=== PATIENT | female | born 1950 | race Caucasian/White ===

== ENCOUNTER 2018-05-21 12:29 | Inpatient (IN) | payer MEDICARE ==
[~2018-05-21] VITALS: Ht 160 cm; Wt 104.5 kg
[2018-05-21 12:30] VITALS: BP 153/58
[2018-05-21] MEDS ORDERED: ALENDRONAT70 MG/75 M PO (12:48)
[2018-05-21] MEDS ORDERED: BAYER CHEWABLE81 MG PO (12:48)
[2018-05-21] MEDS ORDERED: FUROSEMIDE20 MG PO (12:49)
[2018-05-21] MEDS ORDERED: TIROSINT88 MCG PO (12:49)
[2018-05-21] MEDS ORDERED: KLOR-CON 1010 MEQ PO (12:50)
[2018-05-21] MEDS ORDERED: VITAMIN D31000 UNIT PO (12:50)
[2018-05-21 14:33] VITALS: BP 153/58; Ht 160 cm; Wt 104.5 kg
[2018-05-21 18:05] VITALS: BP 145/64
[2018-05-21 18:49] LABS: BASOPHILS 0.1 % (0-2); EOSINOPHILS 0.1 % (0-7); HEMATOCRIT 51.8 % (36.0-48.0); HEMOGLOBIN 17.4 g/dL (12-16); IMMATURE GRANULOCYTES 0.4 % (0-5); LYMPHOCYTES 8.4 % (15-50); MCH 34.3 pg (26.0-34.0); MCHC 33.6 g/dL (31.0-37.0); MEAN PLATELET VOLUME 10.6 fL (7.4-10.4); MONOCYTES 0.6 % (2-11); NEUTROPHILS 90.4 % (40-80); PLATELET COUNT 217 10x3/uL (130-400); RBC 5.08 10x6/uL (4.00-5.40); RDW 13.7 % (11.5-14.5); WBC 10.3 10x3/uL (4.8-10.8)
[2018-05-21 19:24] LABS: ALBUMIN 3.2 g/dL (3.4-5.0); ANION GAP 11.7 mmol/L (8-16); BILIRUBIN - TOTAL 0.41 mg/dL (0.2-1.3); CALCIUM 8.3 mg/dL (8.5-10.1); CARBON DIOXIDE 31.6 mmol/L (21.0-32.0); CREATININE - SERUM 1.1 mg/dL (0.6-1.3); POTASSIUM - SERUM 4.3 mmol/L (3.5-5.1); PROTEIN - SERUM 7.6 g/dL (6.4-8.2)
[2018-05-21 20:53] VITALS: BP 151/71
[2018-05-22 00:34] VITALS: BP 131/61
[2018-05-22 04:46] VITALS: BP 107/56
[2018-05-22 04:51] LABS: BASOPHILS 0.1 % (0-2); EOSINOPHILS 0 % (0-7); HEMATOCRIT 50.5 % (36.0-48.0); HEMOGLOBIN 16.5 g/dL (12-16); IMMATURE GRANULOCYTES 0.5 % (0-5); LYMPHOCYTES 10.5 % (15-50); MCH 33.5 pg (26.0-34.0); MCHC 32.7 g/dL (31.0-37.0); MCV 102.4 fL (80.0-100.0); MEAN PLATELET VOLUME 10.9 fL (7.4-10.4); MONOCYTES 2.1 % (2-11); NEUTROPHILS 86.8 % (40-80); PLATELET COUNT 240 10x3/uL (130-400); RBC 4.93 10x6/uL (4.00-5.40); RDW 13.7 % (11.5-14.5); WBC 9.9 10x3/uL (4.8-10.8)
[2018-05-22 05:09] LABS: ALBUMIN 3.1 g/dL (3.4-5.0); BILIRUBIN - TOTAL 0.4 mg/dL (0.2-1.3); CALCIUM 8.3 mg/dL (8.5-10.1); CARBON DIOXIDE 31.3 mmol/L (21.0-32.0); POTASSIUM - SERUM 4.3 mmol/L (3.5-5.1); PROTEIN - SERUM 7.4 g/dL (6.4-8.2)
[2018-05-22 09:07] VITALS: BP 118/68
[2018-05-22 13:49] VITALS: BP 130/55
[2018-05-22 16:45] VITALS: BP 140/55
[2018-05-22 20:00] VITALS: BP 135/68
[2018-05-23 00:30] VITALS: BP 128/72
[2018-05-23 05:30] LABS: BASOPHILS 0 % (0-2); EOSINOPHILS 0 % (0-7); HEMATOCRIT 48.4 % (36.0-48.0); HEMOGLOBIN 15.5 g/dL (12-16); IMMATURE GRANULOCYTES 0.4 % (0-5); LYMPHOCYTES 6.3 % (15-50); MCH 33.2 pg (26.0-34.0); MCV 103.6 fL (80.0-100.0); MEAN PLATELET VOLUME 10.9 fL (7.4-10.4); MONOCYTES 4.7 % (2-11); NEUTROPHILS 88.6 % (40-80); PLATELET COUNT 258 10x3/uL (130-400); RBC 4.67 10x6/uL (4.00-5.40); RDW 14.1 % (11.5-14.5)
[2018-05-23 05:37] LABS: WBC 16.9 10x3/uL (4.8-10.8)
[2018-05-23 05:45] VITALS: BP 131/62
[2018-05-23 06:22] LABS: ALBUMIN 3.1 g/dL (3.4-5.0); ANION GAP 12.8 mmol/L (8-16); BILIRUBIN - TOTAL 0.31 mg/dL (0.2-1.3); CARBON DIOXIDE 30.8 mmol/L (21.0-32.0); CREATININE - SERUM 1.1 mg/dL (0.6-1.3); POTASSIUM - SERUM 4.6 mmol/L (3.5-5.1); PROTEIN - SERUM 6.6 g/dL (6.4-8.2)
[2018-05-23 08:21] VITALS: BP 145/63
[2018-05-23 11:30] VITALS: BP 133/60
--- NOTE | 2018-05-23 15:22 | HP ---
PATIENT: GEOVANY SHERIDAN MEDICAL RECORD: [id number] ACCOUNT: [id number] LOCATION:D.MS Thomas2225 : 50 ADMISSION DATE: 05/21/18 PCP: No PCP HISTORY AND PHYSICAL EXAMINATION HISTORY: Ms. Sheridan is a 67-year-old white female who presents to the office this morning with shortness of breath and cough. Her initial pulse ox was in the 70s upon arrival. Symptoms have been going on for around little less than 3 weeks. She has cough and chest wall pain. Cough is productive with white thickish sputum. She has had fever, chills, and wheezing. Her chest x-ray reveals some haziness compatible with possible early pneumonia. She is going to be admitted this time for hypoxia and COPD exacerbation. PAST MEDICAL HISTORY: Significant for known COPD/asthma, restless legs, hypothyroidism, hypertension, and obesity. PAST SURGICAL HISTORY: Previous surgeries include cholecystectomy and tonsillectomy. ALLERGIES: KEFLEX, PENICILLIN, AND SULFA. HOME MEDICATIONS: Include levothyroxine 88 mcg a day, KCl 10 mEq daily, furosemide 20 mg a day, alendronate 70 mg once a week, Trelegy one puff daily, ProAir two puffs q. 4 p.r.n., vitamin D one a day, Benadryl, multivitamin, and baby aspirin a day. FAMILY HISTORY: Noncontributory. SOCIAL HISTORY: The patient smokes everyday. She smoked for over 50 years. She does not drink. She is . REVIEW OF SYSTEMS: See chief complaint. She is having fever, shortness of breath, productive cough, and wheezing. No nausea or vomiting. PHYSICAL EXAMINATION: GENERAL: Overweight 67-year-old white female, in mild distress. She is tachypneic at this time. HEART: Regular. LUNGS: Scattered rales and rhonchi. ABDOMEN: Soft. LOWER EXTREMITIES: Reveal some mild edema. IMPRESSION: 1. COPD exacerbation. 2. Hypoxia with pulse ox in the 70s on room air upon presentation. 3. Known COPD. 4. Tobacco abuse. PLAN: Admit. IV antibiotics and pulmonary toilet. See orders for rest of plan. TRANSINT:[id number] Voice Confirmation ID: [id number] DOCUMENT ID: [id number] HISTORY AND PHYSICAL [id number] EMILIANOGEOVANY MATTHEW DO at 1522 CC: [id number] DICTATION DATE: 05/21/18 182 FIBERGLASS FABRICATOR: 05/21/18 185 ADM IN [place] [id number] [place] [id number]
[2018-05-23 20:25] VITALS: BP 119/66
[2018-05-24 00:14] VITALS: BP 119/65
[2018-05-24 04:12] LABS: BASOPHILS 0.1 % (0-2); EOSINOPHILS 0 % (0-7); HEMATOCRIT 52.7 % (36.0-48.0); HEMOGLOBIN 16.6 g/dL (12-16); IMMATURE GRANULOCYTES 0.8 % (0-5); LYMPHOCYTES 7.5 % (15-50); MCH 33.5 pg (26.0-34.0); MCHC 31.5 g/dL (31.0-37.0); MEAN PLATELET VOLUME 10.9 fL (7.4-10.4); MONOCYTES 4.5 % (2-11); NEUTROPHILS 87.1 % (40-80); PLATELET COUNT 285 10x3/uL (130-400); RBC 4.95 10x6/uL (4.00-5.40); RDW 14.3 % (11.5-14.5); WBC 14.9 10x3/uL (4.8-10.8)
[2018-05-24 04:15] LABS: MCV 106.5 fL (80.0-100.0)
[2018-05-24 04:27] LABS: ALBUMIN 3.2 g/dL (3.4-5.0); ANION GAP 11.1 mmol/L (8-16); BILIRUBIN - TOTAL 0.47 mg/dL (0.2-1.3); CALCIUM 8.1 mg/dL (8.5-10.1); CARBON DIOXIDE 32.4 mmol/L (21.0-32.0); CREATININE - SERUM 1.2 mg/dL (0.6-1.3); POTASSIUM - SERUM 4.5 mmol/L (3.5-5.1); PROTEIN - SERUM 7.3 g/dL (6.4-8.2)
[2018-05-24 09:07] VITALS: BP 127/63
--- NOTE | 2018-05-24 10:52 | MORECARE ---
CASE MANAGEMENT DISCHARGE SUMMARY PATIENT: GEOVANY CUMMINGS UNIT: [id number] ADM DATE: 05/21/18 AGE: 67 : 50 SEX: F ROOM/BED: D.2225 AUTHOR: ALISSA DAVIS PHYSICIAN: REFERRING PHYSICIAN: ED KITCHEN MD DATE OF SERVICE: 05/24/18 Discharge Plan Patient Name: GEOVANY CUMMINGS Facility: [facility]:[place] : 1950 Planned Disposition: Home Anticipated Discharge Date: Discharge Date: Expected LOS: Initial Reviewer: [email or web address] Initial Review Date: 05/21/2018 Generated: 05/24/18 11:52 am Patient Name: GEOVANY CUMMINGS Page [id number] at 1052 All edits/amendments must be made on the electronic document DICTATION DATE: 05/24/18 1052 TRAINMAN: JENNIFER 05/24/18 1052 RPT#: [id number] DC DATE: STATUS: ADM IN [facility] [address] [place] [address] END OF REPORT
--- NOTE | 2018-05-24 10:59 | MORECARE ---
CASE MANAGEMENT DISCHARGE SUMMARY PATIENT: GEOVANY CUMMINGS UNIT: [id number] ADM DATE: 05/21/18 AGE: 67 : 50 SEX: F ROOM/BED: D.2225 AUTHOR: ALISSA DAVIS PHYSICIAN: REFERRING PHYSICIAN: ED KITCHEN MD DATE OF SERVICE: 05/24/18 Discharge Plan Patient Name: GEOVANY CUMMINGS [facility] [facility] 1950 Planned Disposition: Home Anticipated Discharge Date: Discharge Date: Expected LOS: Initial Reviewer: [email or web address] Initial Review Date: 05/21/2018 Generated: 05/24/18 11:59 am DCPIA - Discharge Planning Initial Assessment Updated by [id number]: Ewa Pennington on 05/24/18 10:53 am * Is the patient Alert and Oriented? Yes * How many steps to enter\exit or inside your home? 0/1 * PCP Dr. Tavares * Pharmacy [facility] in [place] * Preadmission Environment Home with Family * ADLs Independent * Equipment None * List name and contact numbers for known caregivers / representatives who currently or will assist patient after discharge: Wai Donald [facility] - [phone] * Verbal permission to speak to the caregivers and representatives has been obtained from the patient. Yes * Community resources currently utilized None * Additional services required to return to the preadmission environment? No * Can the patient safely return to the preadmission environment? Yes * Has this patient been hospitalized within the prior 30 days at any hospital? No Last DP export: 05/24/18 9:52 am Patient Name: GEOVANY CUMMINGS Page 53674 at 1059 All edits/amendments must be made on the electronic document DICTATION DATE: 05/24/18 105 FIREARMS SPECIALIST: JENNIFER 05/24/18 1059 RPT#: [id number] DC DATE: STATUS: ADM IN [facility] [address] [place] [address] END OF REPORT
[2018-05-24 13:53] VITALS: BP 135/70
[2018-05-24 16:00] VITALS: BP 164/50
[2018-05-24 17:03] LABS: CKMB 3.7 U/L (0.0-3.6); CREATINE KINASE 114 UL (21-215); TROPONIN-I 0.018 ng/mL (0.000-0.060)
[2018-05-24 20:00] VITALS: BP 94/55
[2018-05-24 22:46] LABS: CKMB 1.8 U/L (0.0-3.6); CREATINE KINASE 112 UL (21-215); TROPONIN-I < 0.017 ng/mL (0.000-0.060)
[2018-05-25] VITALS: BP 123/51; BP 96/58
[2018-05-25 03:00] VITALS: BP 117/65
[2018-05-25 06:20] LABS: BASOPHILS 0.1 % (0-2); EOSINOPHILS 0 % (0-7); HEMATOCRIT 47.9 % (36.0-48.0); HEMOGLOBIN 15.1 g/dL (12-16); LYMPHOCYTES 8.5 % (15-50); MCH 33.3 pg (26.0-34.0); MCHC 31.5 g/dL (31.0-37.0); MCV 105.5 fL (80.0-100.0); MEAN PLATELET VOLUME 10.9 fL (7.4-10.4); MONOCYTES 4.4 % (2-11); PLATELET COUNT 263 10x3/uL (130-400); RBC 4.54 10x6/uL (4.00-5.40); RDW 13.9 % (11.5-14.5)
[2018-05-25 06:21] LABS: WBC 10.5 10x3/uL (4.8-10.8)
[2018-05-25 07:10] LABS: ALBUMIN 2.9 g/dL (3.4-5.0); ALKALINE PHOSPHATASE 73 U/L (46-116); ALT (SGPT) 94 U/L (10-68); BILIRUBIN - TOTAL 0.41 mg/dL (0.2-1.3); CALC OSMOLALITY 292 mosm/kg (275-300); CALCIUM 7.9 mg/dL (8.5-10.1); CHLORIDE - SERUM 104 mmol/L (98-107); CKMB 1.7 U/L (0.0-3.6); CREATINE KINASE 101 UL (21-215); GLUCOSE 177 mg/dL (74-106); POTASSIUM - SERUM 4.7 mmol/L (3.5-5.1); PROTEIN - SERUM 6.4 g/dL (6.4-8.2); SODIUM 144 mmol/L (136-145); TROPONIN-I < 0.017 ng/mL (0.000-0.060); UREA NITROGEN 19 mg/dL (7-18); eGFR NON AFRICAN AMERICAN 58 mL/min (90-120)
[2018-05-25 08:37] VITALS: BP 118/48
[2018-05-25 12:30] VITALS: BP 130/52
[2018-05-25 16:50] VITALS: BP 136/78
[2018-05-25 20:00] VITALS: BP 120/45
[2018-05-26] VITALS: BP 120/56
[2018-05-26 03:00] VITALS: BP 180/56
[2018-05-26 05:39] LABS: BASOPHILS 0.1 % (0-2); EOSINOPHILS 0 % (0-7); HEMATOCRIT 48.2 % (36.0-48.0); HEMOGLOBIN 15.3 g/dL (12-16); IMMATURE GRANULOCYTES 1.2 % (0-5); LYMPHOCYTES 8.1 % (15-50); MCHC 31.7 g/dL (31.0-37.0); MCV 103.9 fL (80.0-100.0); MEAN PLATELET VOLUME 10.7 fL (7.4-10.4); MONOCYTES 5.1 % (2-11); NEUTROPHILS 85.5 % (40-80); PLATELET COUNT 250 10x3/uL (130-400); RBC 4.64 10x6/uL (4.00-5.40); RDW 13.8 % (11.5-14.5); WBC 10.9 10x3/uL (4.8-10.8)
[2018-05-26 06:05] LABS: ALBUMIN 2.8 g/dL (3.4-5.0); ANION GAP 10.8 mmol/L (8-16); BILIRUBIN - TOTAL 0.47 mg/dL (0.2-1.3); CALCIUM 8.4 mg/dL (8.5-10.1); CREATININE - SERUM 1.2 mg/dL (0.6-1.3); POTASSIUM - SERUM 4.8 mmol/L (3.5-5.1); PROTEIN - SERUM 6.2 g/dL (6.4-8.2)
[2018-05-26 08:24] VITALS: BP 124/79
[2018-05-26 12:30] VITALS: BP 137/75
[2018-05-26 16:30] VITALS: BP 157/73
[2018-05-26 20:00] VITALS: BP 121/56
[2018-05-27] VITALS: BP 150/79
[2018-05-27 03:00] VITALS: BP 146/80
[2018-05-27 06:54] LABS: ALBUMIN 2.8 g/dL (3.4-5.0); ANION GAP 8.1 mmol/L (8-16); BILIRUBIN - TOTAL 0.56 mg/dL (0.2-1.3); CALCIUM 8.7 mg/dL (8.5-10.1); POTASSIUM - SERUM 5.1 mmol/L (3.5-5.1)
[2018-05-27 07:41] LABS: BASOPHILS 0.1 % (0-2); EOSINOPHILS 0 % (0-7); HEMATOCRIT 45.5 % (36.0-48.0); HEMOGLOBIN 14.6 g/dL (12-16); IMMATURE GRANULOCYTES 1.1 % (0-5); LYMPHOCYTES 7.4 % (15-50); MCH 32.8 pg (26.0-34.0); MCHC 32.1 g/dL (31.0-37.0); MCV 102.2 fL (80.0-100.0); MONOCYTES 4.1 % (2-11); NEUTROPHILS 87.3 % (40-80); PLATELET COUNT 249 10x3/uL (130-400); RBC 4.45 10x6/uL (4.00-5.40); RDW 13.7 % (11.5-14.5); WBC 10.8 10x3/uL (4.8-10.8)
[2018-05-27 08:03] VITALS: BP 134/82
[2018-05-27 12:08] VITALS: BP 127/73
[2018-05-27 16:27] VITALS: BP 141/65
[2018-05-27 20:55] VITALS: BP 126/62
[2018-05-28 02:14] VITALS: BP 125/61
[2018-05-28 04:32] VITALS: BP 136/67
[2018-05-28 05:58] LABS: BASOPHILS 0.1 % (0-2); EOSINOPHILS 0 % (0-7); HEMATOCRIT 44.8 % (36.0-48.0); HEMOGLOBIN 14.4 g/dL (12-16); IMMATURE GRANULOCYTES 1.3 % (0-5); LYMPHOCYTES 8.7 % (15-50); MCH 32.7 pg (26.0-34.0); MCHC 32.1 g/dL (31.0-37.0); MCV 101.8 fL (80.0-100.0); MEAN PLATELET VOLUME 10.9 fL (7.4-10.4); MONOCYTES 5.5 % (2-11); NEUTROPHILS 84.4 % (40-80); PLATELET COUNT 233 10x3/uL (130-400); RDW 13.7 % (11.5-14.5); WBC 11.9 10x3/uL (4.8-10.8)
[2018-05-28 06:20] LABS: ALBUMIN 2.8 g/dL (3.4-5.0); ANION GAP 7.7 mmol/L (8-16); BILIRUBIN - TOTAL 0.57 mg/dL (0.2-1.3); CALCIUM 8.6 mg/dL (8.5-10.1); CARBON DIOXIDE 38.2 mmol/L (21.0-32.0); POTASSIUM - SERUM 4.9 mmol/L (3.5-5.1); PROTEIN - SERUM 5.9 g/dL (6.4-8.2)
[2018-05-28 09:38] VITALS: BP 128/66
--- NOTE | 2018-05-28 10:45 | CN ---
PATIENT NAME:GEOVANY CUMMINGS MEDICAL RECORD: [id number] : 50 LOCATION:D.MS Thomas2225 ADMIT DATE: 05/21/18 ACCOUNT: [id number] CONSULTING PHYSICIAN: RUPALI ÁLVAREZ MD REFERRING PHYSICIAN: ED KITCHEN MD DATE OF CONSULTATION: 05/24/2018 CARDIOLOGY CONSULTATION DATE OF SERVICE: 05/24/2018 DIAGNOSES: 1. Shortness of breath. 2. Chronic obstructive pulmonary disease. 3. Hypertension. HISTORY OF PRESENT ILLNESS: This patient presented as an outpatient with increasing shortness of breath, dyspnea on exertion. The patient has a history of known COPD. We are asked to comment cardiac etiology on this. He had an echocardiogram revealing ejection fraction of 60%. No valvular disease. There has been no chest pain. No chest discomfort. Troponin is normal and EKG is with no ischemic changes. PHYSICAL EXAMINATION: GENERAL APPEARANCE: Well-nourished, well-developed, appears stated age. Level of distress, comfortable. PSYCHIATRIC: Mental status, alert, normal affect. Orientation, oriented to time, place and person. EYES: Lids and conjunctiva, noninjected. No discharge, no pallor. ENT: Lips, teeth, gums, normal dentition. Oropharynx, no cyanosis, no pallor. NECK: Carotid arteries, bilateral normal upstroke, no bruits, no thrills. JUGULAR VEINS: No jugular venous pressure or distention. CERVICAL LYMPH NODES: Nontender, nonenlarged. THYROID: Not enlarged. Nontender. No nodules. LUNGS: Respiratory effort, unlabored. CHEST: Normal curvature. No thoracic deformity. No chest wall tenderness. Percussion, resonant. Auscultation, clear. No wheezes, no rales, no rhonchi. CARDIOVASCULAR: Precordial exam, nondisplaced. No heaves or pericardial thrills. Rate and rhythm, regular. Heart sounds, normal S1, normal S2. No S3, no gallop, no rub. Systolic murmur, not heard. Diastolic murmur, not heard. EXTREMITIES: No cyanosis, no edema. Peripheral pulses, full and equal in all extremities, except as noted. No bruits appreciated. ABDOMEN: Soft, nondistended. Normal aorta. No bruit. Nontender. No masses. Liver, nontender, no hepatomegaly. Spleen, nontender, no splenomegaly. MUSCULOSKELETAL: No joint tenderness. No joint swelling. No erythema. NEUROLOGICAL: Normal gait, normal strength, normal tone. SKIN: Warm and dry. OVERALL IMPRESSION: Shortness of breath, at this time this is chronic obstructive pulmonary disease and noncardiac. No other cardiac workup or treatment is necessary. TRANSINT:[id number] Voice Confirmation ID: [id number] DOCUMENT ID: [id number] CONSULT REPORT [id number] GEOVANY CUMMINGS JEFFREY MD at 1045 CC: [id number] DICTATION DATE: 05/24/18 1411 CHEMICAL PLANT MANAGER: 05/24/18 1449 ADM IN [facility] [address] [place] [id number]
--- NOTE | 2018-05-28 10:45 | EC ---
PATIENT:GEOVANY CUMMINGS DATE OF SERVICE: 05/21/18 SEX: F MEDICAL RECORD: [id number] DATE OF : 50 LOCATION:D.MS Thomas222 AGE OF PATIENT: 67 ADMISSION DATE: 05/21/18 REFERRING PHYSICIAN: INTERPRETING PHYSICIAN: RUPALI FELIX MD ECHOCARDIOGRAM REPORT ECHO CHARGES 4 ECHO COMPLETE Date: 05/24/18 CLINICAL DIAGNOSIS: PE ECHOCARDIOGRAPHIC MEASUREMENTS (adult normal given) AC root (d.<3.7cm) 3.2 cm LV Septum d (<1.2 cm> 1.2 cm Valve Excursion 1.4 cm LV Septum (systole) 1.3 cm Left Atria (s.<4.0cm> 3.4 cm LVPW d(<1.2cm) 1.1 cm RV (d.<2.3cm) 3.2 cm LVPW (sytole) 1.3 cm LV diastole(<5.6CM) 4.3 cm MV E-F(>70mm/sec) cm LV systole 2.7 cm LVOT Diameter 1.6 cm MV exc.(>10mm) cm Est.ejection fraction (50-75%) % DOPPLER: LVIT cm/sec A 54.0 cm/sec E 94.0 cm/sec LA cm/sec RVSP 22 mmHg LVOT 106 cm/sec AOP1/2T m/s Asc. Ao 153 cm/sec RVOT cm/sec RA cm/sec PA cm/sec AV Gradient Peak 9.31 mmHg AV Mean 4.71 mmHg AV Area 1.6 cm MV Gradient Peak 5.28 mmHg MV Mean 1.98 mmHg MV Area cm COMMENTS: Physical Medicine Teacher: Aleja RECINOS Receiver Bulk System: 1 Dr. Felix TAPE# PACS Pericardial Effusion N DATE OF SERVICE: 05/24/2018 FINDINGS: 1. Left ventricular chamber size is within normal limits. Left ventricular systolic function is normal. Overall ejection fraction estimated at 60%. 2. Left atrium, right atrium, and right ventricle chamber sizes are within normal limits. 3. Valvular structures have normal structure and motion. 4. Doppler interrogation reveals no significant valvular insufficiency or stenosis. ECHOCARDIOGRAM REPORT [id number] GEOVANY CUMMINGS 5. No evidence of pericardial effusion or left ventricular thrombus. TRANSINT:[id number] Voice Confirmation ID: [id number] DOCUMENT ID: [id number] RUPALI FELIX MD at 1045 CC: [id number] DICTATION DATE: 05/24/18 1407 TERRITORY ACCOUNT EXECUTIVE: 05/24/18 1443 ADM IN [place] [id number] [place] [id number]
[2018-05-28 12:04] VITALS: BP 122/49
[2018-05-28 17:24] VITALS: BP 142/57
[2018-05-28 21:09] VITALS: BP 134/71
[2018-05-29 04:48] VITALS: BP 116/65
[2018-05-29 05:26] LABS: BASOPHILS 0.1 % (0-2); EOSINOPHILS 0.2 % (0-7); HEMATOCRIT 43.7 % (36.0-48.0); IMMATURE GRANULOCYTES 1.2 % (0-5); LYMPHOCYTES 25.9 % (15-50); MCH 32.9 pg (26.0-34.0); MCV 102.8 fL (80.0-100.0); MEAN PLATELET VOLUME 10.3 fL (7.4-10.4); MONOCYTES 8.6 % (2-11); PLATELET COUNT 211 10x3/uL (130-400); RBC 4.25 10x6/uL (4.00-5.40); WBC 13.9 10x3/uL (4.8-10.8)
[2018-05-29 05:51] LABS: ALBUMIN 2.7 g/dL (3.4-5.0); ANION GAP 4.3 mmol/L (8-16); BILIRUBIN - TOTAL 0.56 mg/dL (0.2-1.3); CALCIUM 8.5 mg/dL (8.5-10.1); POTASSIUM - SERUM 4.5 mmol/L (3.5-5.1); PROTEIN - SERUM 5.6 g/dL (6.4-8.2)
[2018-05-29 06:10] LABS: CARBON DIOXIDE 40.2 mmol/L (21.0-32.0)
[2018-05-29 13:56] VITALS: BP 151/65
[2018-05-29 17:12] VITALS: BP 119/57
[2018-05-29 21:07] VITALS: BP 151/65
[2018-05-30 04:00] VITALS: BP 127/61
[2018-05-30 05:55] LABS: BASOPHILS 0.1 % (0-2); EOSINOPHILS 0.3 % (0-7); HEMATOCRIT 43.2 % (36.0-48.0); HEMOGLOBIN 13.8 g/dL (12-16); IMMATURE GRANULOCYTES 1.1 % (0-5); LYMPHOCYTES 20.2 % (15-50); MCH 32.9 pg (26.0-34.0); MCHC 31.9 g/dL (31.0-37.0); MCV 102.9 fL (80.0-100.0); MEAN PLATELET VOLUME 11.1 fL (7.4-10.4); NEUTROPHILS 70.3 % (40-80); PLATELET COUNT 215 10x3/uL (130-400); RDW 13.9 % (11.5-14.5); WBC 15.4 10x3/uL (4.8-10.8)
[2018-05-30 06:30] LABS: ALBUMIN 2.7 g/dL (3.4-5.0); ANION GAP 8.6 mmol/L (8-16); BILIRUBIN - TOTAL 0.61 mg/dL (0.2-1.3); CALCIUM 8.5 mg/dL (8.5-10.1); CARBON DIOXIDE 35.9 mmol/L (21.0-32.0); POTASSIUM - SERUM 4.5 mmol/L (3.5-5.1); PROTEIN - SERUM 5.6 g/dL (6.4-8.2)
--- NOTE | 2018-05-30 15:12 | MORECARE ---
CASE MANAGEMENT DISCHARGE SUMMARY PATIENT: GEOVANY CUMMINGS UNIT: [id number] ADM DATE: 05/21/18 AGE: 67 : 50 SEX: F ROOM/BED: D.2223 AUTHOR: RYANDOC PHYSICIAN: REFERRING PHYSICIAN: ED KITCHEN MD DATE OF SERVICE: 05/30/18 Discharge Plan Patient Name: GEOVANY CUMMINGS Facility: [facility]:[place] : 1950 Planned Disposition: Home Anticipated Discharge Date: Discharge Date: Expected LOS: Initial Reviewer: [email or web address] Initial Review Date: 05/21/2018 Generated: 05/30/18 4:12 pm Comments DCP- Discharge Planning Updated by [id number]: Ewa Pennington on 05/24/18 9:[address] Patient Name: GEOVANY CUMMINGS Admission Status: Elective Accout number: [id number] Admission Date: 05-21-2018 : 1950 Admission Diagnosis: Attending: ED KITCHEN Current LOS: 3 Anticipated DC Date: Planned Disposition: Home Primary Insurance: [employer] CHOICE PPO MCR ADVANT Discharge Planning Comments: CM met with patient to discuss discharge planning/needs. She is alone in the room. States she is independent with all ADL's and IADL's. States she lives with her in a safe environment. She does not have any DME or outside community resources assisting in the home. I discussed availability of inpatient rehab, SNF, DME and home health. States her plan is to return home with her . Declines home health, states "my home is a very private place." I informed her of the possibility of needing oxygen or nebulizer at discharge. She states "I don't want oxygen, I've had it before and I don't want it." States she has 5 cats and they don't like the machine. Will need to have a walk test prior to discharge if needed. CM will continue to follow and assist with discharge planning/needs. Multiple Launch Rocket System Crewmember: Ewa Pennington DCPIA - Discharge Planning Initial Assessment Updated by [email or web address]: Ewa Pennington on 05/24/18 10:53 am * Is the patient Alert and Oriented? Yes * How many steps to enter\\exit or inside your home? 0/1 * PCP Dr. Tavares * Pharmacy [facility] in [place] * Preadmission Environment Home with Family * ADLs Independent * Equipment None * List name and contact numbers for known caregivers / representatives who currently or will assist patient after discharge: Wai Donald - [facility] - [phone] * Verbal permission to speak to the caregivers and representatives has been obtained from the patient. Yes * Community resources currently utilized None * Additional services required to return to the preadmission environment? No * Can the patient safely return to the preadmission environment? Yes * Has this patient been hospitalized within the prior 30 days at any hospital? No External Providers External Provider: BRENDANNola Next Contact Date: Service Request Date: Service Type: Resolution: Reviewer: Comments: Last DP export: 05/24/18 9:59 am Patient Name: GEOVANY CUMMINGS Page [id number] at 1512 All edits/amendments must be made on the electronic document DICTATION DATE: 05/30/181511 OPERATING ROOM ASSISTANT: JENNIFER 05/30/181511 RPT#: [id number] DC DATE: STATUS: ADM IN [facility] [address] [place] [address] END OF REPORT
--- NOTE | 2018-05-30 15:20 | MORECARE ---
CASE MANAGEMENT DISCHARGE SUMMARY PATIENT: GEOVANY CUMMINGS UNIT: [id number] ADM DATE: 05/21/18 AGE: 67 : 50 SEX: F ROOM/BED: D.2223 AUTHOR: RYAN,DOC PHYSICIAN: REFERRING PHYSICIAN: ED KITCHEN MD DATE OF SERVICE: 05/30/18 Discharge Plan Patient Name: GEOVANY CUMMINGS Facility: [facility]:[place] : 1950 Planned Disposition: Home Anticipated Discharge Date: Discharge Date: Expected LOS: Initial Reviewer: [email or web address] Initial Review Date: 05/21/2018 Generated: 05/30/18 4:20 pm Comments DCP- Discharge Planning Updated by [email or web address]: Ewa Pennington on 05/30/18 2:[address] Met with patient concerning discharge needs, she will consent to oxygen and nebulizer. MICHELLE for [facility] signed, She states she still does not want home health services. I called and spoke to Kelly at [facility] and order and clinical faxed. CM will continue to follow and assist with discharge planning/needs. DCP- Discharge Planning Updated by [email or web address]: Ewa Pennington on 05/24/18 9:[address] Patient Name: GEOVANY CUMMINGS Admission Status: Elective Accout number: [id number] Admission Date: 05-21-2018 : 1950 Admission Diagnosis: Attending: ED KITCHEN Current LOS: 3 Anticipated DC Date: Planned Disposition: Home Primary Insurance: [employer] CHOICE PPO [facility] Discharge Planning Comments: CM met with patient to discuss discharge planning/needs. She is alone in the room. States she is independent with all ADL's and IADL's. States she lives with her in a safe environment. She does not have any DME or outside community resources assisting in the home. I discussed availability of inpatient rehab, SNF, DME and home health. States her plan is to return home with her . Declines home health, states "my home is a very private place." I informed her of the possibility of needing oxygen or nebulizer at discharge. She states "I don't want oxygen, I've had it before and I don't want it." States she has 5 cats and they don't like the machine. Will need to have a walk test prior to discharge if needed. CM will continue to follow and assist with discharge planning/needs. Machine Deburrer: Ewa Aditi DCPIA - Discharge Planning Initial Assessment Updated by [email or web address]: Ewa Aditi on 05/24/18 10:53 am * Is the patient Alert and Oriented? Yes * How many steps to enter\\exit or inside your home? 0/1 * PCP Dr. Tavares * Pharmacy [facility] in [place] * Preadmission Environment Home with Family * ADLs Independent * Equipment None * List name and contact numbers for known caregivers / representatives who currently or will assist patient after discharge: Wai Donald - [facility] - [phone] * Verbal permission to speak to the caregivers and representatives has been obtained from the patient. Yes * Community resources currently utilized None * Additional services required to return to the preadmission environment? No * Can the patient safely return to the preadmission environment? Yes * Has this patient been hospitalized within the prior 30 days at any hospital? No Last DP export: 05/30/18 2:12 p Patient Name: GEOVANY CUMMINGS Page [id number] at 1520 All edits/amendments must be made on the electronic document DICTATION DATE: 05/30/181518 DEVELOPMENTAL MATHEMATICS PROFESSOR: JENNIFER 05/30/181518 RPT#: [id number] DC DATE: STATUS: ADM IN [facility] [address] [place] [address] END OF REPORT
[2018-05-30 16:30] VITALS: BP 118/61
[2018-05-30 20:00] VITALS: BP 127/62
[2018-05-31] VITALS: BP 140/52
[2018-05-31 06:10] LABS: BASOPHILS 0.1 % (0-2); EOSINOPHILS 0.3 % (0-7); HEMATOCRIT 41.4 % (36.0-48.0); HEMOGLOBIN 13.2 g/dL (12-16); IMMATURE GRANULOCYTES 1.3 % (0-5); LYMPHOCYTES 25.2 % (15-50); MCH 32.7 pg (26.0-34.0); MCHC 31.9 g/dL (31.0-37.0); MCV 102.5 fL (80.0-100.0); MEAN PLATELET VOLUME 11.1 fL (7.4-10.4); MONOCYTES 9.4 % (2-11); NEUTROPHILS 63.7 % (40-80); PLATELET COUNT 210 10x3/uL (130-400); RBC 4.04 10x6/uL (4.00-5.40); RDW 13.9 % (11.5-14.5); WBC 15.6 10x3/uL (4.8-10.8)
[2018-05-31 06:28] LABS: ALBUMIN 2.7 g/dL (3.4-5.0); ANION GAP 7.3 mmol/L (8-16); BILIRUBIN - TOTAL 0.65 mg/dL (0.2-1.3); CALCIUM 8.3 mg/dL (8.5-10.1); CARBON DIOXIDE 36.9 mmol/L (21.0-32.0); POTASSIUM - SERUM 4.2 mmol/L (3.5-5.1); PROTEIN - SERUM 5.5 g/dL (6.4-8.2)
[2018-05-31 10:04] VITALS: BP 135/81
--- NOTE | 2018-05-31 13:14 | MORECARE ---
CASE MANAGEMENT DISCHARGE SUMMARY PATIENT: GEOVANY CUMMINGS UNIT: [id number] ADM DATE: 05/21/18 AGE: 67 : 50 SEX: F ROOM/BED: D.2223 AUTHOR: RYAN,DOC PHYSICIAN: REFERRING PHYSICIAN: ED KITCHEN MD DATE OF SERVICE: 05/31/18 Discharge Plan Patient Name: GEOVANY CUMMINGS Facility: [facility]:[place] : 1950 Planned Disposition: Home Anticipated Discharge Date: Discharge Date: Expected LOS: Initial Reviewer: [email or web address] Initial Review Date: 05/21/2018 Generated: 05/31/18 2:14 pm Comments DCP- Discharge Planning Updated by [email or web address]: Ewa Pennington on 05/31/18 12:[address] Signed oxygen order and nebulizer order faxed to [facility] at [phone]. If she does not discharge today, will need to repeat a walk test to qualify for oxygen and send to [facility]. CM will continue to follow and assist with discharge planning/needs. [facility] in [place] - Phone [phone] F [phone] DCP- Discharge Planning Updated by [email or web address]: Ewa Pennington on 05/30/18 2:[address] Met with patient concerning discharge needs, she will consent to oxygen and nebulizer. MICHELLE for [facility] signed, She states she still does not want home health services. I called and spoke to Kelly at [facility] and order and clinical faxed. CM will continue to follow and assist with discharge planning/needs. DCP- Discharge Planning Updated by [email or web address]: Ewa Pennington on 05/24/18 9:[address] Patient Name: GEOVANY CUMMINGS Admission Status: Elective Accout number: [id number] Admission Date: 05-21-2018 : 1950 Admission Diagnosis: Attending: ED KITCHEN Current LOS: 3 Anticipated DC Date: Planned Disposition: Home Primary Insurance: [employer] CHOICE PPO MCR ADVANT Discharge Planning Comments: CM met with patient to discuss discharge planning/needs. She is alone in the room. States she is independent with all ADL's and IADL's. States she lives with her in a safe environment. She does not have any DME or outside community resources assisting in the home. I discussed availability of inpatient rehab, SNF, DME and home health. States her plan is to return home with her . Declines home health, states "my home is a very private place." I informed her of the possibility of needing oxygen or nebulizer at discharge. She states "I don't want oxygen, I've had it before and I don't want it." States she has 5 cats and they don't like the machine. Will need to have a walk test prior to discharge if needed. CM will continue to follow and assist with discharge planning/needs. Appliance Counselor: Ewa Pennington DCPIA - Discharge Planning Initial Assessment Updated by [email or web address]: Ewa Pennington on 05/24/18 10:53 am * Is the patient Alert and Oriented? Yes * How many steps to enter\\exit or inside your home? 0/1 * PCP Dr. Tavares * Pharmacy [facility] in [place] * Preadmission Environment Home with Family * ADLs Independent * Equipment None * List name and contact numbers for known caregivers / representatives who currently or will assist patient after discharge: Wai Donald - - [phone] * Verbal permission to speak to the caregivers and representatives has been obtained from the patient. Yes * Community resources currently utilized None * Additional services required to return to the preadmission environment? No * Can the patient safely return to the preadmission environment? Yes * Has this patient been hospitalized within the prior 30 days at any hospital? No Last DP export: 05/30/18 2:20 p Patient Name: GEOVANY CUMMINGS Page [id number] at 1314 All edits/amendments must be made on the electronic document DICTATION DATE: 05/31/18 1314 PEOPLESOFT ANALYST: JENNIFER 05/31/18 1314 RPT#: [id number] CO DATE: STATUS: ADM IN [facility] [address] [place] [address] END OF REPORT
[2018-05-31 14:49] VITALS: BP 148/66
[2018-05-31 17:36] VITALS: BP 127/66
[2018-05-31 20:00] VITALS: BP 123/71
[2018-06-01 00:27] LABS: APPEARANCE CLEAR (CLEAR); BILIRUBIN NEGATIVE (NEGATIVE); COLOR YELLOW (YELLOW); GLUCOSE NEGATIVE (NEGATIVE); KETONE NEGATIVE (NEGATIVE); NITRITE NEGATIVE (NEGATIVE); PROTEIN NEGATIVE (NEGATIVE); UROBILINOGEN NORMAL (NORMAL)
[2018-06-01 04:00] VITALS: BP 132/65
[2018-06-01 07:33] LABS: HEMATOCRIT 41.4 % (36.0-48.0); HEMOGLOBIN 13.3 g/dL (12-16); MCH 32.9 pg (26.0-34.0); MCHC 32.1 g/dL (31.0-37.0); MCV 102.5 fL (80.0-100.0); MEAN PLATELET VOLUME 11.6 fL (7.4-10.4); PLATELET COUNT 215 10x3/uL (130-400); RBC 4.04 10x6/uL (4.00-5.40); RDW 13.8 % (11.5-14.5)
[2018-06-01 07:39] LABS: CALC OSMOLALITY 298 mosm/kg (275-300); CALCIUM 8.3 mg/dL (8.5-10.1); CARBON DIOXIDE 31.6 mmol/L (21.0-32.0); CHLORIDE - SERUM 103 mmol/L (98-107); MAGNESIUM - SERUM 2.5 mg/dL (1.8-2.4); PHOSPHOROUS 3.3 mg/dL (2.5-4.9); POTASSIUM - SERUM 4.3 mmol/L (3.5-5.1); SODIUM 142 mmol/L (136-145); TROPONIN-I < 0.017 ng/mL (0.000-0.060); UREA NITROGEN 28 mg/dL (7-18); eGFR NON AFRICAN AMERICAN 58 mL/min (90-120)
[2018-06-01 07:45] LABS: GLUCOSE 286 mg/dL (74-106)
[2018-06-01 08:17] LABS: LYMPHOCYTES 7 % (15-50); NEUTROPHILS 93 % (40-80); PLATELET ESTIMATE NORMAL
[2018-06-01 10:58] VITALS: BP 107/74
[2018-06-01 14:18] VITALS: BP 120/60
[2018-06-01 17:57] VITALS: BP 118/74
[2018-06-01 20:00] VITALS: BP 153/68
[2018-06-02] VITALS: BP 126/63
[2018-06-02 04:00] VITALS: BP 105/44
[2018-06-02 05:21] LABS: BASOPHILS 0.1 % (0-2); EOSINOPHILS 0 % (0-7); HEMATOCRIT 39.7 % (36.0-48.0); IMMATURE GRANULOCYTES 1.3 % (0-5); LYMPHOCYTES 5.3 % (15-50); MCH 33.2 pg (26.0-34.0); MCHC 32.7 g/dL (31.0-37.0); MCV 101.3 fL (80.0-100.0); MEAN PLATELET VOLUME 11.3 fL (7.4-10.4); MONOCYTES 3.5 % (2-11); NEUTROPHILS 89.8 % (40-80); PLATELET COUNT 226 10x3/uL (130-400); RBC 3.92 10x6/uL (4.00-5.40); RDW 13.5 % (11.5-14.5)
[2018-06-02 05:30] LABS: ANION GAP 10.7 mmol/L (8-16); CALCIUM 8.2 mg/dL (8.5-10.1); CARBON DIOXIDE 31.8 mmol/L (21.0-32.0); POTASSIUM - SERUM 4.5 mmol/L (3.5-5.1)
[2018-06-02 09:27] VITALS: BP 144/57
[2018-06-02 13:20] VITALS: BP 131/73
[2018-06-02 17:02] VITALS: BP 127/55
[2018-06-02 21:20] VITALS: BP 156/76
[2018-06-03 02:06] VITALS: BP 147/61
[2018-06-03 06:00] VITALS: BP 131/52
[2018-06-03 06:55] LABS: HEMATOCRIT 39.9 % (36.0-48.0); HEMOGLOBIN 12.9 g/dL (12-16); MCH 32.8 pg (26.0-34.0); MCHC 32.3 g/dL (31.0-37.0); MCV 101.5 fL (80.0-100.0); MEAN PLATELET VOLUME 11.4 fL (7.4-10.4); PLATELET COUNT 240 10x3/uL (130-400); RBC 3.93 10x6/uL (4.00-5.40); RDW 13.6 % (11.5-14.5); WBC 21.9 10x3/uL (4.8-10.8)
[2018-06-03 06:57] LABS: ANION GAP 8.9 mmol/L (8-16); CALCIUM 8.3 mg/dL (8.5-10.1); CARBON DIOXIDE 32.7 mmol/L (21.0-32.0); CREATININE - SERUM 1.1 mg/dL (0.6-1.3); POTASSIUM - SERUM 4.6 mmol/L (3.5-5.1)
[2018-06-03 08:07] VITALS: BP 130/66
[2018-06-03 10:11] LABS: EOSINOPHILS 1 % (0-7); LYMPHOCYTES 9 % (15-50); MONOCYTES 6 % (2-11); NEUTROPHILS 84 % (40-80); PLATELET ESTIMATE NORMAL
--- NOTE | 2018-06-03 11:46 | EC ---
PATIENT:GEOVANY CUMMINGS DATE OF SERVICE: 05/21/18 SEX: F MEDICAL RECORD: [id number] DATE OF : [birth year] LOCATION:D.MS Thomas222 AGE OF PATIENT: 67 ADMISSION DATE: 05/21/18 REFERRING PHYSICIAN: INTERPRETING PHYSICIAN: RUPALI FELIX MD ECHOCARDIOGRAM REPORT ECHO CHARGES 5 ECHO LIMITED Date: 05/30/18 CLINICAL DIAGNOSIS: BUBBLE STUDEY TO ASSESS FOR SHUNT...HYPOXEMIA ECHOCARDIOGRAPHIC MEASUREMENTS (adult normal given) AC root (d.<3.7cm) 3.2 cm LV Septum d (<1.2 cm> 1.2 cm Valve Excursion 1.4 cm LV Septum (systole) 1.3 cm Left Atria (s.<4.0cm> 3.4 cm LVPW d(<1.2cm) 1.1 cm RV (d.<2.3cm) 3.2 cm LVPW (sytole) 1.3 cm LV diastole(<5.6CM) 4.3 cm MV E-F(>70mm/sec) cm LV systole 2.7 cm LVOT Diameter 1.6 cm MV exc.(>10mm) cm Est.ejection fraction (50-75%) % DOPPLER: LVIT cm/sec A 54.0 cm/sec E 94.0 cm/sec LA cm/sec RVSP 22 mmHg LVOT 106 cm/sec AOP1/2T m/s Asc. Ao 153 cm/sec RVOT cm/sec RA cm/sec PA cm/sec AV Gradient Peak 9.31 mmHg AV Mean 4.71 mmHg AV Area 1.6 cm MV Gradient Peak 5.28 mmHg MV Mean 1.98 mmHg MV Area cm COMMENTS: Public Bath Attendant: Aleja RECINOS Medical Record Administrator: 1 Dr. Felix TAPE# PACS Pericardial Effusion N DATE OF SERVICE: 05/30/2018 FINDINGS: 1. Left ventricular chamber size is within normal limits. Left ventricular systolic function is normal. Overall ejection fraction estimated at 55% to 60%. 2. Left atrium, right atrium, and right ventricle chamber sizes are within normal limits. 3. Valvular structures have normal structure and motion. 4. Doppler interrogation reveals no significant valvular insufficiency or stenosis. ECHOCARDIOGRAM REPORT [id number] GEOVANY CUMMINGS 5. Bubble study was performed. There is no sojz-ce-ipdxk or right to left shunt. 6. No evidence of pericardial effusion or left ventricular thrombus. 7. No cardiac source of neurologic emboli. TRANSINT:[id number] Voice Confirmation ID: [id number] DOCUMENT ID: [id number] RUPALI FELIX MD at 1146 CC: [id number] DICTATION DATE: 05/31/18 1126 MANUFACTURING APPLICATIONS ENGINEER: 05/31/18 1144 ADM IN [place] [id number] [place] [id number]
[2018-06-03 12:11] VITALS: BP 124/49
[2018-06-03 17:09] VITALS: BP 150/63
[2018-06-03 20:40] VITALS: BP 127/52
[2018-06-04 00:12] VITALS: BP 125/47
[2018-06-04 04:01] VITALS: BP 103/68
[2018-06-04 05:02] LABS: BASOPHILS 0.1 % (0-2); EOSINOPHILS 0 % (0-7); HEMATOCRIT 39.3 % (36.0-48.0); HEMOGLOBIN 12.7 g/dL (12-16); IMMATURE GRANULOCYTES 1.6 % (0-5); MCH 32.7 pg (26.0-34.0); MCHC 32.3 g/dL (31.0-37.0); MCV 101.3 fL (80.0-100.0); MEAN PLATELET VOLUME 11.3 fL (7.4-10.4); MONOCYTES 3.4 % (2-11); NEUTROPHILS 89.9 % (40-80); PLATELET COUNT 252 10x3/uL (130-400); RBC 3.88 10x6/uL (4.00-5.40); RDW 13.6 % (11.5-14.5); WBC 17.3 10x3/uL (4.8-10.8)
[2018-06-04 05:14] LABS: ANION GAP 8.6 mmol/L (8-16); CALCIUM 7.9 mg/dL (8.5-10.1); CARBON DIOXIDE 31.9 mmol/L (21.0-32.0); CREATININE - SERUM 1.2 mg/dL (0.6-1.3); POTASSIUM - SERUM 4.5 mmol/L (3.5-5.1)
[2018-06-04 08:39] VITALS: BP 133/90
[2018-06-04 12:13] VITALS: BP 135/51
--- NOTE | 2018-06-04 14:13 | MORECARE ---
CASE MANAGEMENT DISCHARGE SUMMARY PATIENT: GEOVANY CUMMINGS UNIT: [id number] ADM DATE: 05/21/18 AGE: 67 : 50 SEX: F ROOM/BED: D.2223 AUTHOR: RYAN,DOC PHYSICIAN: REFERRING PHYSICIAN: ED KITCHEN MD DATE OF SERVICE: 06/04/18 Discharge Plan Patient Name: GEOVANY CUMMINGS Facility: [facility]:[place] : 1950 Planned Disposition: Home Anticipated Discharge Date: Discharge Date: Expected LOS: Initial Reviewer: [id number] Initial Review Date: 05/21/2018 Generated: 06/04/18 3:13 pm Comments DCP- Discharge Planning Updated by [id number]: Ewa Aditi on 06/04/18 1:[address] CM continues to follow, I will set up another walk test prior to discharge for home oxygen. [facility] has the O and is ready to set up oxygen and portable prior to discharge. CM will continue to follow and assist with discharge planning/needs. DCP- Discharge Planning Updated by [email or web address]: Ewa Aditi on 05/31/18 12:[address] Signed oxygen order and nebulizer order faxed to [facility] at [phone]. If she does not discharge today, will need to repeat a walk test to qualify for oxygen and send to [facility]. CM will continue to follow and assist with discharge planning/needs. [facility] in [place] - Phone [phone] F [phone] DCP- Discharge Planning Updated by [email or web address]: Ewa Aditi on 05/30/18 2:[address] Met with patient concerning discharge needs, she will consent to oxygen and nebulizer. MICHELLE for [facility] signed, She states she still does not want home health services. I called and spoke to Kelly at [facility] and order and clinical faxed. CM will continue to follow and assist with discharge planning/needs. DCP- Discharge Planning Updated by [id number]: Ewa Aditi on 05/24/18 9:[address] Patient Name: GEOVANY CUMMINGS Admission Status: Elective Accout number: [id number] Admission Date: 05-21-2018 : 1950 Admission Diagnosis: Attending: ED KITCHEN Current LOS: 3 Anticipated DC Date: Planned Disposition: Home Primary Insurance: [employer] CHOICE PPO [facility] Discharge Planning Comments: CM met with patient to discuss discharge planning/needs. She is alone in the room. States she is independent with all ADL's and IADL's. States she lives with her in a safe environment. She does not have any DME or outside community resources assisting in the home. I discussed availability of inpatient rehab, SNF, DME and home health. States her plan is to return home with her . Declines home health, states "my home is a very private place." I informed her of the possibility of needing oxygen or nebulizer at discharge. She states "I don't want oxygen, I've had it before and I don't want it." States she has 5 cats and they don't like the machine. Will need to have a walk test prior to discharge if needed. CM will continue to follow and assist with discharge planning/needs. [employer]her [employer] Mica: Ewa Pennington DCPIA - Discharge Planning Initial Assessment Updated by [id number]: Ewa Pennington on 05/24/18 10:53 am * Is the patient Alert and Oriented? Yes * How many steps to enter\\exit or inside your home? 0/1 * PCP Dr. Tavares * Pharmacy [facility] in [place] * Preadmission Environment Home with Family * ADLs Independent * Equipment None * List name and contact numbers for known caregivers / representatives who currently or will assist patient after discharge: Wai Donald - - [phone] * Verbal permission to speak to the caregivers and representatives has been obtained from the patient. Yes * Community resources currently utilized None * Additional services required to return to the preadmission environment? No * Can the patient safely return to the preadmission environment? Yes * Has this patient been hospitalized within the prior 30 days at any hospital? No Last DP export: 05/31/18 12:14 p Patient Name: GEOVANY CUMMINGS Page [id number] at 1413 All edits/amendments must be made on the electronic document DICTATION DATE: 06/04/181412 ASBESTOS REMOVAL SUPERVISOR: JENNIFER 06/04/181412 RPT#: [id number] DC DATE: STATUS: ADM IN [facility] [address] [place] [address] END OF REPORT
[2018-06-04 15:55] VITALS: BP 130/48
[2018-06-04 20:00] VITALS: BP 150/69
[2018-06-05 04:00] VITALS: BP 140/58
[2018-06-05 06:06] LABS: BASOPHILS 0.1 % (0-2); EOSINOPHILS 0 % (0-7); HEMATOCRIT 37.9 % (36.0-48.0); HEMOGLOBIN 12.4 g/dL (12-16); IMMATURE GRANULOCYTES 1.8 % (0-5); LYMPHOCYTES 4.9 % (15-50); MCH 32.8 pg (26.0-34.0); MCHC 32.7 g/dL (31.0-37.0); MCV 100.3 fL (80.0-100.0); MEAN PLATELET VOLUME 11.1 fL (7.4-10.4); MONOCYTES 3.8 % (2-11); NEUTROPHILS 89.4 % (40-80); PLATELET COUNT 243 10x3/uL (130-400); RBC 3.78 10x6/uL (4.00-5.40); RDW 13.5 % (11.5-14.5); WBC 15.4 10x3/uL (4.8-10.8)
[2018-06-05 06:28] LABS: ANION GAP 12.3 mmol/L (8-16); CALCIUM 7.8 mg/dL (8.5-10.1); CARBON DIOXIDE 30.4 mmol/L (21.0-32.0); CREATININE - SERUM 1.1 mg/dL (0.6-1.3); POTASSIUM - SERUM 4.7 mmol/L (3.5-5.1)
[2018-06-05 08:27] VITALS: BP 129/55
[2018-06-05 12:53] VITALS: BP 126/52
[2018-06-05 15:47] VITALS: BP 111/51
[2018-06-05 21:36] VITALS: BP 121/69
[2018-06-06] VITALS: BP 122/57
[2018-06-06 04:00] VITALS: BP 141/63
[2018-06-06 05:16] LABS: BASOPHILS 0.1 % (0-2); EOSINOPHILS 0 % (0-7); HEMATOCRIT 37.5 % (36.0-48.0); HEMOGLOBIN 12.2 g/dL (12-16); MCH 32.8 pg (26.0-34.0); MCHC 32.5 g/dL (31.0-37.0); MCV 100.8 fL (80.0-100.0); MEAN PLATELET VOLUME 11.4 fL (7.4-10.4); MONOCYTES 5.2 % (2-11); NEUTROPHILS 87.7 % (40-80); PLATELET COUNT 232 10x3/uL (130-400); RBC 3.72 10x6/uL (4.00-5.40); RDW 13.4 % (11.5-14.5); WBC 15.9 10x3/uL (4.8-10.8)
[2018-06-06 05:35] LABS: ALBUMIN 2.5 g/dL (3.4-5.0); ANION GAP 9.4 mmol/L (8-16); BILIRUBIN - TOTAL 0.53 mg/dL (0.2-1.3); CALCIUM 7.9 mg/dL (8.5-10.1); CARBON DIOXIDE 32.4 mmol/L (21.0-32.0); CREATININE - SERUM 1.1 mg/dL (0.6-1.3); POTASSIUM - SERUM 4.8 mmol/L (3.5-5.1); PROTEIN - SERUM 5.2 g/dL (6.4-8.2)
[2018-06-06 08:55] VITALS: BP 142/49
--- NOTE | 2018-06-06 14:26 | MORECARE ---
CASE MANAGEMENT DISCHARGE SUMMARY PATIENT: GEOVANY CUMMINGS UNIT: [id number] ADM DATE: 05/21/18 AGE: 67 : 50 SEX: F ROOM/BED: D.2223 AUTHOR: RYAN,DOC PHYSICIAN: REFERRING PHYSICIAN: ED KITCHEN MD DATE OF SERVICE: 06/06/18 Discharge Plan Patient Name: GEOVANY CUMMINGS Facility: [facility]:[place] : 1950 Planned Disposition: Home Anticipated Discharge Date: Discharge Date: Expected LOS: Initial Reviewer: [email or web address] Initial Review Date: 05/21/2018 Generated: 06/06/18 3:26 pm Comments DCP- Discharge Planning Updated by [email or web address]: Ewa Aditi on 06/06/18 1:[address] [facility] is here. They have delivered 2 large oxygen tanks for her. States they will set up home oxygen and take nebulizer to her home on discharge. I spoke with the patient and she did not want the large tanks. I and the respiratory therapist explained that the large tanks will last an hour and she states it takes 45 minutes to get to her home. I informed her that the smaller tanks are for patient's that are on 2L of oxygen, not 5L. I asked if she would have discharge transportation and she is unsure if she will or not. CM will continue to follow and assist with discharge planning/needs. DCP- Discharge Planning Updated by [id number]: Ewa Pennington on 06/04/18 1:[address] CM continues to follow, I will set up another walk test prior to discharge for home oxygen. [facility] has the DWO and is ready to set up oxygen and portable prior to discharge. CM will continue to follow and assist with discharge planning/needs. DCP- Discharge Planning Updated by [id number]: Ewa Aditi on 05/31/18 12:[address] Signed oxygen order and nebulizer order faxed to [facility] at [phone]. If she does not discharge today, will need to repeat a walk test to qualify for oxygen and send to [facility]. CM will continue to follow and assist with discharge planning/needs. [facility] in [place] - Phone [phone] F [phone] DCP- Discharge Planning Updated by [id number]: Ewa Pennington on 05/30/18 2:[address] Met with patient concerning discharge needs, she will consent to oxygen and nebulizer. MICHELLE for [facility] signed, She states she still does not want home health services. I called and spoke to Kelly at [facility] and order and clinical faxed. CM will continue to follow and assist with discharge planning/needs. DCP- Discharge Planning Updated by [email or web address]: Ewa Pennington on 05/24/18 9:[address] Patient Name: GEOVANY CUMMINGS Admission Status: Elective Accout number: [id number] Admission Date: 05-21-2018 : 1950 Admission Diagnosis: Attending: ED KITCHEN Current LOS: 3 Anticipated DC Date: Planned Disposition: Home Primary Insurance: [employer] CHOICE PPO [employer] Discharge Planning Comments: CM met with patient to discuss discharge planning/needs. She is alone in the room. States she is independent with all ADL's and IADL's. States she lives with her in a safe environment. She does not have any DME or outside community resources assisting in the home. I discussed availability of inpatient rehab, SNF, DME and home health. States her plan is to return home with her . Declines home health, states "my home is a very private place." I informed her of the possibility of needing oxygen or nebulizer at discharge. She states "I don't want oxygen, I've had it before and I don't want it." States she has 5 cats and they don't like the machine. Will need to have a walk test prior to discharge if needed. CM will continue to follow and assist with discharge planning/needs. Parts Picker: Ewa Pennington DCPIA - Discharge Planning Initial Assessment Updated by [id number]: Ewa Pennington on 05/24/18 10:53 am * Is the patient Alert and Oriented? Yes * How many steps to enter\\exit or inside your home? 0/1 * PCP Dr. Tavares * Pharmacy [facility] in [place] * Preadmission Environment Home with Family * ADLs Independent * Equipment None * List name and contact numbers for known caregivers / representatives who currently or will assist patient after discharge: Wai Donald - - [phone] * Verbal permission to speak to the caregivers and representatives has been obtained from the patient. Yes * Community resources currently utilized None * Additional services required to return to the preadmission environment? No * Can the patient safely return to the preadmission environment? Yes * Has this patient been hospitalized within the prior 30 days at any hospital? No Last DP export: 06/04/18 1:13 p Patient Name: GEOVANY CUMMINGS Page [id number] at 1426 All edits/amendments must be made on the electronic document DICTATION DATE: 06/06/181425 HEATING EQUIPMENT INSTALLER: JENNIFER 06/06/181425 RPT#: [id number] DC DATE: STATUS: ADM IN [facility] [address] [place] [address] END OF REPORT
[2018-06-06 20:00] VITALS: BP 157/60
[2018-06-07] VITALS: BP 145/67
[2018-06-07 04:00] VITALS: BP 115/59
[2018-06-07 07:12] LABS: BASOPHILS 0.1 % (0-2); EOSINOPHILS 0 % (0-7); HEMATOCRIT 36.6 % (36.0-48.0); HEMOGLOBIN 12.1 g/dL (12-16); IMMATURE GRANULOCYTES 1.3 % (0-5); LYMPHOCYTES 4.2 % (15-50); MCH 33.2 pg (26.0-34.0); MCHC 33.1 g/dL (31.0-37.0); MCV 100.3 fL (80.0-100.0); MEAN PLATELET VOLUME 11.1 fL (7.4-10.4); MONOCYTES 5.5 % (2-11); NEUTROPHILS 88.9 % (40-80); PLATELET COUNT 230 10x3/uL (130-400); RBC 3.65 10x6/uL (4.00-5.40); RDW 13.4 % (11.5-14.5); WBC 15.6 10x3/uL (4.8-10.8)
[2018-06-07 07:26] LABS: ALBUMIN 2.6 g/dL (3.4-5.0); ANION GAP 10.2 mmol/L (8-16); BILIRUBIN - TOTAL 0.57 mg/dL (0.2-1.3); CARBON DIOXIDE 32.8 mmol/L (21.0-32.0); PROTEIN - SERUM 5.2 g/dL (6.4-8.2)
[2018-06-07 08:40] VITALS: BP 125/53
[2018-06-07 12:50] VITALS: BP 127/66
[2018-06-07 17:48] VITALS: BP 116/71
[2018-06-07 20:00] VITALS: BP 120/50
[2018-06-08] VITALS: BP 140/64
[2018-06-08 04:00] VITALS: BP 133/59
[2018-06-08 06:47] LABS: BASOPHILS 0.1 % (0-2); EOSINOPHILS 0 % (0-7); HEMATOCRIT 38.8 % (36.0-48.0); HEMOGLOBIN 12.8 g/dL (12-16); IMMATURE GRANULOCYTES 1.3 % (0-5); LYMPHOCYTES 4.6 % (15-50); MCH 32.7 pg (26.0-34.0); MCV 99.2 fL (80.0-100.0); MEAN PLATELET VOLUME 11.3 fL (7.4-10.4); PLATELET COUNT 232 10x3/uL (130-400); RBC 3.91 10x6/uL (4.00-5.40); RDW 13.5 % (11.5-14.5); WBC 14.9 10x3/uL (4.8-10.8)
[2018-06-08 07:10] LABS: ALBUMIN 2.8 g/dL (3.4-5.0); BILIRUBIN - TOTAL 0.69 mg/dL (0.2-1.3); CARBON DIOXIDE 34.5 mmol/L (21.0-32.0); CREATININE - SERUM 1.1 mg/dL (0.6-1.3); PROTEIN - SERUM 5.4 g/dL (6.4-8.2)
[2018-06-08 07:12] LABS: ANION GAP 7.5 mmol/L (8-16)
[2018-06-08 09:00] VITALS: BP 136/69
[2018-06-08 14:44] VITALS: BP 122/64
[2018-06-08 18:20] VITALS: BP 140/95
[2018-06-08 19:50] VITALS: BP 140/61
[2018-06-09] VITALS (7 sets, daily range): BP systolic 122–169; BP diastolic 60–74
[2018-06-09 06:53] LABS: ALBUMIN 2.8 g/dL (3.4-5.0); BILIRUBIN - TOTAL 0.77 mg/dL (0.2-1.3); CALCIUM 8.1 mg/dL (8.5-10.1); CARBON DIOXIDE 31.1 mmol/L (21.0-32.0); CREATININE - SERUM 1.2 mg/dL (0.6-1.3); PROTEIN - SERUM 5.5 g/dL (6.4-8.2)
[2018-06-09 07:00] LABS: ANION GAP 11.6 mmol/L (8-16); POTASSIUM - SERUM 4.7 mmol/L (3.5-5.1)
[2018-06-09 07:10] LABS: BASOPHILS 0.1 % (0-2); EOSINOPHILS 0 % (0-7); HEMATOCRIT 38.6 % (36.0-48.0); HEMOGLOBIN 12.7 g/dL (12-16); IMMATURE GRANULOCYTES 0.8 % (0-5); LYMPHOCYTES 4.3 % (15-50); MCH 32.7 pg (26.0-34.0); MCHC 32.9 g/dL (31.0-37.0); MCV 99.5 fL (80.0-100.0); MEAN PLATELET VOLUME 11.3 fL (7.4-10.4); MONOCYTES 3.2 % (2-11); NEUTROPHILS 91.6 % (40-80); PLATELET COUNT 228 10x3/uL (130-400); RBC 3.88 10x6/uL (4.00-5.40); RDW 13.3 % (11.5-14.5); WBC 13.1 10x3/uL (4.8-10.8)
[2018-06-10] VITALS: BP 131/67
[2018-06-10 04:00] VITALS: BP 128/66
[2018-06-10 05:09] LABS: BASOPHILS 0.1 % (0-2); EOSINOPHILS 0.3 % (0-7); HEMATOCRIT 39.6 % (36.0-48.0); HEMOGLOBIN 13.1 g/dL (12-16); IMMATURE GRANULOCYTES 0.7 % (0-5); LYMPHOCYTES 18.7 % (15-50); MCH 33.3 pg (26.0-34.0); MCHC 33.1 g/dL (31.0-37.0); MCV 100.8 fL (80.0-100.0); MEAN PLATELET VOLUME 10.7 fL (7.4-10.4); MONOCYTES 6.2 % (2-11); RBC 3.93 10x6/uL (4.00-5.40); RDW 13.6 % (11.5-14.5); WBC 15.2 10x3/uL (4.8-10.8)
[2018-06-10 05:13] LABS: PLATELET COUNT 182 10x3/uL (130-400)
[2018-06-10 05:32] LABS: ALBUMIN 2.8 g/dL (3.4-5.0); ANION GAP 9.5 mmol/L (8-16); BILIRUBIN - TOTAL 0.91 mg/dL (0.2-1.3); CALCIUM 8.4 mg/dL (8.5-10.1); CREATININE - SERUM 1.2 mg/dL (0.6-1.3); POTASSIUM - SERUM 4.5 mmol/L (3.5-5.1); PROTEIN - SERUM 5.6 g/dL (6.4-8.2)
[2018-06-10 08:23] VITALS: BP 136/58
[2018-06-10 12:16] VITALS: BP 119/59; BP 137/64
[2018-06-10 15:08] VITALS: BP 108/65
[2018-06-10 20:31] VITALS: BP 118/45
[2018-06-11 00:47] VITALS: BP 123/54
[2018-06-11 04:54] VITALS: BP 134/59
[2018-06-11 05:20] LABS: BASOPHILS 0.1 % (0-2); EOSINOPHILS 0.6 % (0-7); HEMATOCRIT 36.9 % (36.0-48.0); IMMATURE GRANULOCYTES 0.6 % (0-5); LYMPHOCYTES 20.2 % (15-50); MCH 32.9 pg (26.0-34.0); MCHC 32.5 g/dL (31.0-37.0); MCV 101.1 fL (80.0-100.0); MEAN PLATELET VOLUME 10.9 fL (7.4-10.4); MONOCYTES 5.7 % (2-11); NEUTROPHILS 72.8 % (40-80); PLATELET COUNT 166 10x3/uL (130-400); RBC 3.65 10x6/uL (4.00-5.40); RDW 13.7 % (11.5-14.5); WBC 12.6 10x3/uL (4.8-10.8)
[2018-06-11 05:38] LABS: CALCIUM 8.2 mg/dL (8.5-10.1); CARBON DIOXIDE 34.1 mmol/L (21.0-32.0); CREATININE - SERUM 1.1 mg/dL (0.6-1.3); POTASSIUM - SERUM 4.1 mmol/L (3.5-5.1)
[2018-06-11 08:45] VITALS: BP 135/60
[2018-06-11] MEDS ORDERED: CARDIZEM60 MG PO (10:52)
[2018-06-11] MEDS ORDERED: ELIQUIS5 MG PO (10:52)
[2018-06-11] MEDS ORDERED: MUCINEX600 MG PO (10:54)
[2018-06-11] MEDS ORDERED: SINGULAIR10 MG PO (10:54)
[2018-06-11] MEDS ORDERED: TESSALON PERLE100 MG PO (10:55)
[2018-06-11] MEDS ORDERED: GLUCOPHAGE500 MG PO (10:56)
[2018-06-11] MEDS ORDERED: FLUTICASONE PRO16 GM NASAL (10:57)
[2018-06-11] MEDS ORDERED: PULMICORT0.5 MG/21 UPD (10:59)
[2018-06-11] MEDS ORDERED: ALBUTEROL SULF8.5 GM INH (11:00)
[2018-06-11] MEDS ORDERED: PREDNISONE10 MG PO (11:14)
--- NOTE | 2018-06-11 12:56 | MORECARE ---
CASE MANAGEMENT DISCHARGE SUMMARY PATIENT: GEOVANY CUMMINGS UNIT: [id number] ADM DATE: 05/21/18 AGE: 67 : 50 SEX: F ROOM/BED: D.2223 AUTHOR: RYAN,DOC PHYSICIAN: REFERRING PHYSICIAN: ED KITCHEN MD DATE OF SERVICE: 06/11/18 Discharge Plan Patient Name: GEOVANY CUMMINGS Facility: [facility]:[place] : 1950 Planned Disposition: Home Anticipated Discharge Date: Discharge Date: Expected LOS: Initial Reviewer: [id number] Initial Review Date: 05/21/2018 Generated: 06/11/18 1:56 pm Comments DCP- Discharge Planning Updated by [id number]: Ewa Aditi on 06/11/18 11:[address] Received discharge orders. Patient states her is buying a pulse oximeter from the [employer]. States she already has her oxygen and nebulizer and med at the house delivered by [facility]. She is asking for a smaller tank, I called Tim and informed. She states her niece or nephew will take her home this evening. Declines home health. She declines any other needs for DME. CM will continue to follow and assist with discharge planning/needs. DCP- Discharge Planning Updated by [email or web address]: Ewa Aditi on 06/06/18 1:[address] [facility] is here. They have delivered 2 large oxygen tanks for her. States they will set up home oxygen and take nebulizer to her home on discharge. I spoke with the patient and she did not want the large tanks. I and the respiratory therapist explained that the large tanks will last an hour and she states it takes 45 minutes to get to her home. I informed her that the smaller tanks are for patient's that are on 2L of oxygen, not 5L. I asked if she would have discharge transportation and she is unsure if she will or not. CM will continue to follow and assist with discharge planning/needs. DCP- Discharge Planning Updated by [id number]: Ewa Aditi on 06/04/18 1:[address] CM continues to follow, I will set up another walk test prior to discharge for home oxygen. [facility] has the DWO and is ready to set up oxygen and portable prior to discharge. CM will continue to follow and assist with discharge planning/needs. DCP- Discharge Planning Updated by [id number]: Ewa Pennington on 05/31/18 12:[address] Signed oxygen order and nebulizer order faxed to [facility] at [phone]. If she does not discharge today, will need to repeat a walk test to qualify for oxygen and send to [facility]. CM will continue to follow and assist with discharge planning/needs. [facility] in [place] - Phone [phone] F [phone] DCP- Discharge Planning Updated by [id number]: Ewa Pennington on 05/30/18 2:[address] Met with patient concerning discharge needs, she will consent to oxygen and nebulizer. MICHELLE for [facility] signed, She states she still does not want home health services. I called and spoke to Kelly at [facility] and order and clinical faxed. CM will continue to follow and assist with discharge planning/needs. DCP- Discharge Planning Updated by [id number]: Ewa Pennington on 05/24/18 9:[address] Patient Name: GEOVANY CUMMINGS Admission Status: Elective Accout number: [id number] Admission Date: 05-21-2018 : 1950 Admission Diagnosis: Attending: ED KITCHEN Current LOS: 3 Anticipated DC Date: Planned Disposition: Home Primary Insurance: [employer] CHOICE PPO [facility] Discharge Planning Comments: CM met with patient to discuss discharge planning/needs. She is alone in the room. States she is independent with all ADL's and IADL's. States she lives with her in a safe environment. She does not have any DME or outside community resources assisting in the home. I discussed availability of inpatient rehab, SNF, DME and home health. States her plan is to return home with her . Declines home health, states "my home is a very private place." I informed her of the possibility of needing oxygen or nebulizer at discharge. She states "I don't want oxygen, I've had it before and I don't want it." States she has 5 cats and they don't like the machine. Will need to have a walk test prior to discharge if needed. CM will continue to follow and assist with discharge planning/needs. Grain Grader: Ewa Pennington DCPIA - Discharge Planning Initial Assessment Updated by [email or web address]: Ewa Pennington on 05/24/18 10:53 am * Is the patient Alert and Oriented? Yes * How many steps to enter\\exit or inside your home? 0/1 * PCP Dr. Tavares * Pharmacy [facility] in [place] * Preadmission Environment Home with Family * ADLs Independent * Equipment None * List name and contact numbers for known caregivers / representatives who currently or will assist patient after discharge: Wai Donald - [facility] [phone] * Verbal permission to speak to the caregivers and representatives has been obtained from the patient. Yes * Community resources currently utilized None * Additional services required to return to the preadmission environment? No * Can the patient safely return to the preadmission environment? Yes * Has this patient been hospitalized within the prior 30 days at any hospital? No Coverage Notice Reviewer: [id number] - Ewa Pennington Notice Issued Date-Time: 06/10/2018 10:07 Notice Type: IM Discharge Notice Notice Delivered To: Patient Relationship to Patient: Self Director Of Real Estate Name: Delivery Method: HAND - Hand Delivered Anaya Days: Prior Verbal Notification: Recipient Understood Notice: Yes Recipient Signature: Yes Med Rec Note Co-signed by Attending: Coverage Notice Comment: IMM explained, signed, given, copy placed in MR Last DP export: 06/06/18 1:26 p Patient Name: GEOVANY CUMMINGS Page [id number] at 1256 All edits/amendments must be made on the electronic document DICTATION DATE: 06/11/18 1256 ONLINE EDUCATION MANAGER: JENNIFER 06/11/18 1256 RPT#: [id number] DC DATE: STATUS: ADM IN [facility] [address] [place] [address] END OF REPORT
[2018-06-11 13:00] VITALS: BP 133/65
--- NOTE | 2018-06-11 15:44 | MORECARE ---
CASE MANAGEMENT DISCHARGE SUMMARY PATIENT: GEOVANY CUMMINGS UNIT: [id number] ADM DATE: 05/21/18 AGE: 67 : 50 SEX: F ROOM/BED: D.2223 AUTHOR: RYAN,DOC PHYSICIAN: REFERRING PHYSICIAN: DE KITCHEN MD DATE OF SERVICE: 06/11/18 Discharge Plan Patient Name: GEOVANY CUMMINGS Facility: [facility]:[place] : 1950 Planned Disposition: Home Anticipated Discharge Date: Discharge Date: Expected LOS: Initial Reviewer: [email or web address] Initial Review Date: 05/21/2018 Generated: 06/11/18 4:43 pm Comments DCP- Discharge Planning Updated by [email or web address]: Ewa Aditi on 06/11/18 2:[address] DWO faxed to [facility] for conserving oxygen tubing per Dr. Rae. He agrees with smaller tank and conserving device for portable unit. I informed the patient that she will be getting smaller portable tank for discharge. She declines home health. Going home today. DCP- Discharge Planning Updated by [id number]: Ewa Owendayna on 06/11/18 11:[address] Received discharge orders. Patient states her is buying a pulse oximeter from the [employer]. States she already has her oxygen and nebulizer and med at the house delivered by [facility]. She is asking for a smaller tank, I called [facility] and informed. She states her niece or nephew will take her home this evening. Declines home health. She declines any other needs for DME. CM will continue to follow and assist with discharge planning/needs. DCP- Discharge Planning Updated by [id number]: Ewa Aditi on 06/06/18 1:[address] [facility] 2 [facility] oxygen tanks for her. States they will set up home oxygen and take nebulizer to her home on discharge. I spoke with the patient and she did not want the large tanks. I and the respiratory therapist explained that the large tanks will last an hour and she states it takes 45 minutes to get to her home. I informed her that the smaller tanks are for patient's that are on 2L of oxygen, not 5L. I asked if she would have discharge transportation and she is unsure if she will or not. CM will continue to follow and assist with discharge planning/needs. DCP- Discharge Planning Updated by [id number]: Ewa Pennington on 06/04/18 1:[address] CM continues to follow, I will set up another walk test prior to discharge for home oxygen. [facility] has the DWO and is ready to set up oxygen and portable prior to discharge. CM will continue to follow and assist with discharge planning/needs. DCP- Discharge Planning Updated by [id number]: Ewa Pennington on 05/31/18 12:[address] Signed oxygen order and nebulizer order faxed to [facility] at [phone]. If she does not discharge today, will need to repeat a walk test to qualify for oxygen and send to [facility]. CM will continue to follow and assist with discharge planning/needs. [facility] in [place] - Phone [phone] F [phone] DCP- Discharge Planning Updated by [id number]: Ewa Pennington on 05/30/18 2:[address] Met with patient concerning discharge needs, she will consent to oxygen and nebulizer. MICHELLE for [facility] signed, She states she still does not want home health services. I called and spoke to Kelly at [facility] and order and clinical faxed. CM will continue to follow and assist with discharge planning/needs. DCP- Discharge Planning Updated by [id number]: Ewa Pennington on 05/24/18 9:[address] Patient Name: GEOVANY CUMMINGS Admission Status: Elective Accout number: [id number] Admission Date: 05-21-2018 : 1950 Admission Diagnosis: Attending: ED KITCHEN Current LOS: 3 Anticipated DC Date: Planned Disposition: Home Primary Insurance: [employer] CHOICE PPO [employer] Discharge Planning Comments: CM met with patient to discuss discharge planning/needs. She is alone in the room. States she is independent with all ADL's and IADL's. States she lives with her in a safe environment. She does not have any DME or outside community resources assisting in the home. I discussed availability of inpatient rehab, SNF, DME and home health. States her plan is to return home with her . Declines home health, states "my home is a very private place." I informed her of the possibility of needing oxygen or nebulizer at discharge. She states "I don't want oxygen, I've had it before and I don't want it." States she has 5 cats and they don't like the machine. Will need to have a walk test prior to discharge if needed. CM will continue to follow and assist with discharge planning/needs. Junior Network Administrator: wEa Pennington DCPIA - Discharge Planning Initial Assessment Updated by [email or web address]: Ewa Pennington on 05/24/18 10:53 am * Is the patient Alert and Oriented? Yes * How many steps to enter\\exit or inside your home? 0/1 * PCP Dr. Tavares * Pharmacy [facility] in [place] * Preadmission Environment Home with Family * ADLs Independent * Equipment None * List name and contact numbers for known caregivers / representatives who currently or will assist patient after discharge: Wai Donald [facility] - [phone] * Verbal permission to speak to the caregivers and representatives has been obtained from the patient. Yes * Community resources currently utilized None * Additional services required to return to the preadmission environment? No * Can the patient safely return to the preadmission environment? Yes * Has this patient been hospitalized within the prior 30 days at any hospital? No Coverage Notice Reviewer: [id number] - Ewa Pennington Notice Issued Date-Time: 06/10/2018 10:07 Notice Type: IM Discharge Notice Notice Delivered To: Patient Relationship to Patient: Self Cement Breaker Name: Delivery Method: HAND - Hand Delivered Anaya Days: Prior Verbal Notification: Recipient Understood Notice: Yes Recipient Signature: Yes Med Rec Note Co-signed by Attending: Coverage Notice Comment: IMM explained, signed, given, copy placed in MR Last DP export: 06/11/18 11:56 a Patient Name: GEOVANY CUMMINGS Page [id number] at 1544 All edits/amendments must be made on the electronic document DICTATION DATE: 06/11/181542 DOLL MAKER: JENNIFER 06/11/181542 RPT#: [id number] GA DATE: STATUS: ADM IN [facility] [address] [place] [address] END OF REPORT
--- NOTE | 2018-06-12 16:50 | MORECARE ---
CASE MANAGEMENT DISCHARGE SUMMARY PATIENT: GEOVANY CUMMINGS UNIT: [id number] ADM DATE: 05/21/18 AGE: 67 : 50 SEX: F ROOM/BED: D.2223 AUTHOR: RYAN,DOC PHYSICIAN: REFERRING PHYSICIAN: ED KITCHEN MD DATE OF SERVICE: 06/12/18 Discharge Plan Patient Name: GEOVANY CUMMINGS Facility: [facility]:[place] : 1950 Planned Disposition: Home Anticipated Discharge Date: Discharge Date: 06/11/2018 Expected LOS: 0 Initial Reviewer: [email or web address] Initial Review Date: 05/21/2018 Generated: 06/12/18 5:50 pm Comments DCP- Discharge Planning Updated by [email or web address]: Ewa Aditi on 06/11/18 2:[address] DWO faxed to [facility] for conserving oxygen tubing per Dr. Rae. He agrees with smaller tank and conserving device for portable unit. I informed the patient that she will be getting smaller portable tank for discharge. She declines home health. Going home today. DCP- Discharge Planning Updated by [email or web address]: Ewa Aditi on 06/11/18 11:[address] Received discharge orders. Patient states her is buying a pulse oximeter from the [employer]. States she already has her oxygen and nebulizer and med at the house delivered by [facility]. She is asking for a smaller tank, I called [facility] and informed. She states her niece or nephew will take her home this evening. Declines home health. She declines any other needs for DME. CM will continue to follow and assist with discharge planning/needs. DCP- Discharge Planning Updated by [email or web address]: Ewa Aditi on 06/06/18 1:[address] [facility] 2 large oxygen tanks for her. States they will set up home oxygen and take nebulizer to her home on discharge. I spoke with the patient and she did not want the large tanks. I and the respiratory therapist explained that the large tanks will last an hour and she states it takes 45 minutes to get to her home. I informed her that the smaller tanks are for patient's that are on 2L of oxygen, not 5L. I asked if she would have discharge transportation and she is unsure if she will or not. CM will continue to follow and assist with discharge planning/needs. DCP- Discharge Planning Updated by [email or web address]: Ewa Pennington on 06/04/18 1:[address] CM continues to follow, I will set up another walk test prior to discharge for home oxygen. [facility] has the DWO and is ready to set up oxygen and portable prior to discharge. CM will continue to follow and assist with discharge planning/needs. DCP- Discharge Planning Updated by [email or web address]: Ewa Pennington on 05/31/18 12:[address] Signed oxygen order and nebulizer order faxed to [facility] at [phone]. If she does not discharge today, will need to repeat a walk test to qualify for oxygen and send to [facility]. CM will continue to follow and assist with discharge planning/needs. [facility] in [place] - Phone [phone] F [phone] DCP- Discharge Planning Updated by [email or web address]: Ewa Pennington on 05/30/18 2:[address] Met with patient concerning discharge needs, she will consent to oxygen and nebulizer. MICHELLE for [facility] signed, She states she still does not want home health services. I called and spoke to Kelly at [facility] and order and clinical faxed. CM will continue to follow and assist with discharge planning/needs. DCP- Discharge Planning Updated by [email or web address]: Ewa Pennington on 05/24/18 9:[address] Patient Name: GEOVANY CUMMINGS Admission Status: Elective Accout number: [id number] Admission Date: 05-21-2018 : 1950 Admission Diagnosis: Attending: ED KITCHEN Current LOS: 3 Anticipated DC Date: Planned Disposition: Home Primary Insurance: [employer] Discharge Planning Comments: CM met with patient to discuss discharge planning/needs. She is alone in the room. States she is independent with all ADL's and IADL's. States she lives with her in a safe environment. She does not have any DME or outside community resources assisting in the home. I discussed availability of inpatient rehab, SNF, DME and home health. States her plan is to return home with her . Declines home health, states "my home is a very private place." I informed her of the possibility of needing oxygen or nebulizer at discharge. She states "I don't want oxygen, I've had it before and I don't want it." States she has 5 cats and they don't like the machine. Will need to have a walk test prior to discharge if needed. CM will continue to follow and assist with discharge planning/needs. Roller Stainer: Ewa Pennington DCPIA - Discharge Planning Initial Assessment Updated by [email or web address]: Ewa Pennington on 05/24/18 10:53 am * Is the patient Alert and Oriented? Yes * How many steps to enter\\exit or inside your home? 0/1 * PCP Dr. Tavares * Pharmacy [facility] in [place] * Preadmission Environment Home with Family * ADLs Independent * Equipment None * List name and contact numbers for known caregivers / representatives who currently or will assist patient after discharge: Wai Donald - - [phone] * Verbal permission to speak to the caregivers and representatives has been obtained from the patient. Yes * Community resources currently utilized None * Additional services required to return to the preadmission environment? No * Can the patient safely return to the preadmission environment? Yes * Has this patient been hospitalized within the prior 30 days at any hospital? No Coverage Notice Reviewer: [email or web address] - Ewa Pennington Notice Issued Date-Time: 06/10/2018 10:07 Notice Type: IM Discharge Notice Notice Delivered To: Patient Relationship to Patient: Self Line Puller Name: Delivery Method: HAND - Hand Delivered Anaya Days: Prior Verbal Notification: Recipient Understood Notice: Yes Recipient Signature: Yes Med Rec Note Co-signed by Attending: Coverage Notice Comment: IMM explained, signed, given, copy placed in MR Last DP export: 06/11/18 2:44 p Patient Name: GEOVANY CUMMINGS Page [id number] at 1650 All edits/amendments must be made on the electronic document DICTATION DATE: 06/12/181648 MOTORIZED SQUAD CAPTAIN: JENNIFER 06/12/181648 RPT#: [id number] DC DATE:06/11/18 STATUS: DIS IN [facility] [address] [place] [address] END OF REPORT
== END 2018-06-11 19:45 | disposition home or self-care (01) | DRG 175 ==
LOC: D.MS 12:29
PROVIDERS: Family Medicine; Internal Medicine Nephrology; ADMIT Family Medicine
DX: I26.99 Other pulmonary embolism without acute cor pulmonale (principal); J18.9 Pneumonia, unspecified organism; J96.01 Acute respiratory failure with hypoxia; J96.21 Acute and chronic respiratory failure with hypoxia; J44.1 Chronic obstructive pulmonary disease with (acute) exacerbation; F17.213 Nicotine dependence, cigarettes, with withdrawal; Z68.41 Body mass index [BMI] 40.0-44.9, adult; J44.0 Chronic obstructive pulmonary disease with (acute) lower respiratory infection; I47.1 Supraventricular tachycardia; E66.9 Obesity, unspecified; G25.81 Restless legs syndrome; E03.9 Hypothyroidism, unspecified; I11.0 Hypertensive heart disease with heart failure; I50.9 Heart failure, unspecified; E66.01 Morbid (severe) obesity due to excess calories

== ENCOUNTER → 2018-11-07 14:25 | Outpatient (CLI) | payer MEDICARE ==
[2018-05-21 14:33] VITALS: BMI 40.8
[~2018-11-07 14:25] MED LIST: ALBUTEROL SULF8.5 GM INH; ALENDRONAT70 MG/75 M PO; BAYER CHEWABLE81 MG PO; CARDIZEM60 MG PO; ELIQUIS5 MG PO; FLUTICASONE PRO16 GM NASAL; FUROSEMIDE20 MG PO; GLUCOPHAGE500 MG PO; KLOR-CON 1010 MEQ PO; MUCINEX600 MG PO; PREDNISONE10 MG PO; PULMICORT0.5 MG/21 UPD; SINGULAIR10 MG PO; TESSALON PERLE100 MG PO; TIROSINT88 MCG PO; VITAMIN D31000 UNIT PO
== END | disposition home or self-care (01) ==
LOC: D.RT 08-14 14:00
PROVIDERS: ATTEND Internal Medicine Pulmonary Disease
DX: J44.9 Chronic obstructive pulmonary disease, unspecified (principal)

== ENCOUNTER 2019-10-12 05:39 | Emergency (ER) | payer MEDICARE ==
[~2019-10-12] VITALS: Ht 160 cm; Wt 113.6 kg
[2019-10-12 05:44] VITALS: Ht 160 cm; Wt 113.6 kg
[2019-10-12] MEDS ORDERED: LEVOXYL125 MCG (05:50)
[2019-10-12] MEDS ORDERED: IPRAT-ALBUT 0.5-3 ML UPD (05:51)
[2019-10-12] MEDS ORDERED: REQUIP3 MG (05:52)
[2019-10-12 06:46] LABS: BASOPHILS 0.4 % (0-2); HEMATOCRIT 45.8 % (36.0-48.0); HEMOGLOBIN 14.5 g/dL (12-16); IMMATURE GRANULOCYTES 0.2 % (0-5); LYMPHOCYTES 20.3 % (15-50); MCH 31.6 pg (26.0-34.0); MCHC 31.7 g/dL (31.0-37.0); MCV 99.8 fL (80.0-100.0); MEAN PLATELET VOLUME 10.3 fL (7.4-10.4); MONOCYTES 6.7 % (2-11); NEUTROPHILS 70.4 % (40-80); RBC 4.59 10x6/uL (4.00-5.40); RDW 14.6 % (11.5-14.5); WBC 11.3 10x3/uL (4.8-10.8)
[2019-10-12 06:50] LABS: PLATELET COUNT 255 10x3/uL (130-400)
[2019-10-12] MEDS ORDERED: CARDIZEM LA120 M1 PO (06:52)
[2019-10-12 07:04] LABS: CALC OSMOLALITY 284 mosm/kg (275-300); CARBON DIOXIDE 27.6 mmol/L (21.0-32.0); CHLORIDE - SERUM 103 mmol/L (98-107); CREATININE - SERUM 1.4 mg/dL (0.6-1.3); GLUCOSE 214 mg/dL (74-106); POTASSIUM - SERUM 3.7 mmol/L (3.5-5.1); SODIUM 140 mmol/L (136-145); UREA NITROGEN 12 mg/dL (7-18); eGFR NON AFRICAN AMERICAN 40 mL/min (90-120)
[2019-10-12 07:20] LABS: ALBUMIN 3.1 g/dL (3.4-5.0); ALKALINE PHOSPHATASE 157 U/L (30-120); ALT (SGPT) 84 U/L (10-68); BILIRUBIN - TOTAL 0.52 mg/dL (0.2-1.3); CREATINE KINASE 89 UL (21-215); PRO BNP 104 pg/mL (0-125); PROTEIN - SERUM 7.2 g/dL (6.4-8.2); T4 THYROXIN - FREE 1.42 ng/dL (0.76-1.46); T4 THYROXINE 10.9 ug/dL (4.7-13.3); THYROID STIMULATING HORMONE 11.25 uIU/mL (0.36-3.74); TROPONIN-I < 0.017 ng/mL (0.000-0.060)
[2019-10-12 10:20] VITALS: BP 111/51
== END 2019-10-12 10:20 | disposition home or self-care (01) ==
LOC: D.ER 05:39
PROVIDERS: Emergency Medicine
DX: Z86.79 Personal history of other diseases of the circulatory system (principal); J44.9 Chronic obstructive pulmonary disease, unspecified; E07.9 Disorder of thyroid, unspecified